=== PATIENT | male | born 1985 | race Two or more races ===

== ENCOUNTER 2022-12-18 17:49 | Emergency (ER) | payer OTHER ==
[~2022-12-18] VITALS: Ht 185.4 cm; Wt 59.0 kg
[2022-12-18 20:53] LABS: Urine Bacteria FEW /hpf (None Seen); Urine Blood 1+ /uL (Negative); Urine Clarity CLOUDY (Clear); Urine Color Yellow (Yellow); Urine Mucus FEW (None Seen); Urine Protein, UAD 1+ (Negative); Urine Specific Gravity 1.013 (1.001-1.035); Urine Urobilinogen Normal (Negative); Urine WBC 893 /hpf (0 - 3); Urine WBC Clumps PRESENT /hpf (None Seen); Urine pH 7.5 (5.0-8.0)
[2022-12-18 23:13] VITALS: TEMP 97.7
[2022-12-19] MEDS ORDERED: cefTRIAXone SOD 1,000 MG VL IM ONE (01:00)
[2022-12-19] MEDS ORDERED: ZOFR4T PO (01:00)
[2022-12-19] MEDS ORDERED: CIPR500T4 PO (01:00)
[2022-12-19] MEDS ORDERED: ONDANSETRON ODT 4 MG TAB PO ONE (01:00)
[2022-12-19 01:21] VITALS: BP 93/55; PULSE 98; RESP 17; O2SAT 99
== END 2022-12-19 01:24 | disposition home or self-care (01) ==
LOC: ER 17:49
DX: N39.0 Urinary tract infection, site not specified (principal); F12.90 Cannabis use, unspecified, uncomplicated; Z79.899 Other long term (current) drug therapy
CPT/HCPCS: 81001; 96372; 99283; J0696; Q0162